=== PATIENT | female | born 1940 | race African-American/Black ===

== ENCOUNTER 2017-01-16 16:28 | Inpatient (IN) | payer MEDICARE ==
[~2017-01-16] VITALS: Ht 170.2 cm; Wt 92.1 kg
[2017-01-16] MEDS ORDERED: SODIUM CHLORIDE 0.9% 1,000 ML IV ONE (17:13)
[2017-01-16 17:48] LABS: BASOPHILS % 0.2 % (0.0-2.0); EOSINOPHILS % 0.1 % (0.0-5.0); HEMATOCRIT. 32.1 % (36.0-48.0); HEMOGLOBIN. 10.8 g/dL (12.0-16.0); INR 1.1; LYMPHOCYTES % 8.9 % (20.0-50.0); MEAN CORPUSCULAR HEMOGLOBIN 28.8 pg (28.0-32.0); MEAN CORPUSCULAR VOLUME 86.2 fL (81.0-99.0); MEAN PLATELET VOLUME 9.4 fl (7.4-10.4); MONOCYTES % 5.3 % (2.0-8.0); NEUTROPHILS % 85.5 % (40.0-76.0); PARTIAL THROMBOPLASTIN TIME 21.2 sec (23.4-31.0); PLATELET 182 x1000/uL (130-400); RED BLOOD CELL COUNT 3.73 mill/uL (4.2-5.4); RED CELL DISTRIBUTION WIDTH 18.1 % (11.6-14.6)
[2017-01-16 17:53] LABS: CARBON DIOXIDE 25 mEq/L (21-32); CHLORIDE 105 mEq/L (98-107)
[2017-01-16 17:57] LABS: TROPONIN I < 0.02 ng/mL (0.00-0.04)
[2017-01-16] MEDS ORDERED: ASPIRIN 81MG TABLET PO ONE (18:45)
[2017-01-16] MEDS ORDERED: DIVALPROEX SODIUM 250MG ER TABLET PO ONE (18:45)
[2017-01-16] MEDS ORDERED: POTASSIUM CHLORIDE 20MEQ TABLET SR PO ONE (18:45)
[2017-01-16] MEDS ORDERED: ACETAMINOPHEN 650MG/20.3ML UDC GT PRN (21:45)
[2017-01-16] MEDS ORDERED: ACETAMINOPHEN 650MG SUPP PR PRN (21:45)
[2017-01-16] MEDS ORDERED: ONDANSETRON HCL 4MG/2ML VIAL IV PRN (21:45)
[2017-01-16] MEDS ORDERED: NA PHOS,M-B/NA PHOS,DI-BA ENEMA 118ML PR PRN (21:45)
[2017-01-16] MEDS ORDERED: DOCUSATE SODIUM 100MG CAPSULE PO PRN (21:45)
[2017-01-16] MEDS ORDERED: CLONIDINE 0.1MG TABLET PO PRN (21:45)
[2017-01-16] MEDS ORDERED: ACETAMINOPHEN 325MG TABLET PO PRN (21:45)
[2017-01-16] MEDS ORDERED: MAGNESIUM/ALUMINUM HYDROXIDE/SIMETHICONE 30ML UDC PO PRN (21:45)
[2017-01-16] MEDS ORDERED: LEVETIRACETAM 500MG PREMIX 100 ML IV ONE (21:45)
[2017-01-16] MEDS ORDERED: GUAIFENESIN 200MG/10ML SUGAR FREE UDC PO PRN (21:45)
[2017-01-16] MEDS ORDERED: HYDROCODONE/ACETAMINOPHEN 5/325MG TABLET PO PRN (21:45)
[2017-01-16] MEDS ORDERED: LORAZEPAM 2MG/ML CPJ IV PRN (21:45)
[2017-01-16] MEDS ORDERED: IPRATROPIUM/ALBUTEROL 0.5-3(2.5)MG/3ML NEB INH PRN (21:45)
[2017-01-16] MEDS ORDERED: DIPHENHYDRAMINE 50MG/ML VIAL IV PRN (21:45)
[2017-01-16 22:58] VITALS: BP 146/77
[2017-01-16] MEDS ORDERED: MAGN500C4 PO (23:35)
[2017-01-16] MEDS ORDERED: THY60 PO (23:35)
[2017-01-16] MEDS ORDERED: ATOR40TA70 PO (23:35)
[2017-01-16] MEDS ORDERED: ENAL2.5T PO (23:35)
[2017-01-16] MEDS ORDERED: LOPHC2 PO (23:35)
[2017-01-16] MEDS ORDERED: DIXL10 PO (23:35)
[2017-01-16] MEDS ORDERED: TORS20TA4 PO (23:35)
[2017-01-16] MEDS ORDERED: NIFE30TA94 PO (23:35)
[2017-01-16] MEDS ORDERED: CLOP75TA16 PO (23:35)
[2017-01-16] MEDS ORDERED: CALC250T2 PO (23:35)
[2017-01-16] MEDS ORDERED: [UNRECOGNIZED DRUG - CODE] PO (23:35)
[2017-01-16] MEDS ORDERED: METF1000 PO (23:35)
[2017-01-16] MEDS ORDERED: ASCO-339 PO (23:35)
[2017-01-16] MEDS ORDERED: ASPI-1159 PO (23:35)
[2017-01-16] MEDS ORDERED: FERR325T6 PO (23:35)
[2017-01-16] MEDS ORDERED: VITA1TAB20 PO (23:35)
[2017-01-16] MEDS ORDERED: VALP250S4 PO (23:35)
[2017-01-17] VITALS: BP 135/65
[2017-01-17] MEDS: LEVETIRACETAM 500MG in SODIUM CHLORIDE 0.9% 100ML IV SCH ×3 (00:18→21:50)
[2017-01-17] MEDS: SODIUM CHLORIDE 0.9% INJ 3ML FLUSH IVF SCH ×4 (00:19→21:51)
[2017-01-17] MEDS: SODIUM CHLORIDE 0.45% 1,000 ML IV SCH ×2 (00:19→14:12)
[2017-01-17] MEDS ORDERED: DEXTROSE 50% WATER 50ML SYRINGE IV PRN (01:00)
[2017-01-17] MEDS ORDERED: METOPROL PO SCH (01:15)
[2017-01-17] MEDS ORDERED: HYDROCHLOROTHIAZIDE PO SCH (01:15)
[2017-01-17 01:41] LABS: CREATINE KINASE MB FRACTION 0.5 ng/mL (0.5-3.6); TROPONIN I 0.04 ng/mL (0.00-0.04)
[2017-01-17 04:00] VITALS: BP 125/80
[2017-01-17] MEDS: BLOOD SUGAR DIAGNOSTIC STRIP TEST SCH ×3 (06:35→21:00)
[2017-01-17] MEDS: INSULIN LISPRO 100 UNITS/ML SUBCUT SCH ×3 (07:50→21:00)
[2017-01-17 08:00] VITALS: BP 139/76
[2017-01-17] MEDS ORDERED: OXYBUTYNIN CHLORIDE 15 MG PO SCH (09:00)
[2017-01-17] MEDS ORDERED: NUT TX GLUC INTOLER LAC FR SOY PO SCH (09:00)
[2017-01-17] MEDS ORDERED: VITAMIN B COMPLEX PO SCH (09:00)
[2017-01-17] MEDS ORDERED: MAGNESIUM OXIDE 200 MG PO SCH (09:00)
[2017-01-17] MEDS ORDERED: ASCORBIC ACID 500 MG TABLET PO SCH (09:00)
[2017-01-17] MEDS ORDERED: MEDICATION NOT ON FORMULARY EA (Ascorbate Calcium (Vitamin C) 500 MG) PO SCH (09:00)
[2017-01-17] MEDS ORDERED: CALCIUM CITRATE 250 MG PO SCH (09:00)
[2017-01-17] MEDS ORDERED: MEDICATION NOT ON FORMULARY EA (Ferrous Sulfate 325 MG) PO SCH (09:00)
[2017-01-17] MEDS ORDERED: METFORMIN HCL PO SCH (09:00)
[2017-01-17] MEDS ORDERED: MEDICATION NOT ON FORMULARY EA (Nifedipine (Nifedipine Er) 1 TAB) PO SCH (09:00)
[2017-01-17] MEDS ORDERED: TORSEMIDE 10 MG PO SCH (09:00)
[2017-01-17] MEDS: METFORMIN HCL 500MG TABLET PO SCH ×2 (09:13→17:20)
[2017-01-17] MEDS: FERROUS SULFATE 325MG TABLET PO SCH (09:14)
[2017-01-17] MEDS: OXYBUTYNIN CHLORIDE 5MG TABLET PO SCH ×3 (09:14→17:19)
[2017-01-17] MEDS: METOPROLOL TARTRATE 50MG TABLET PO SCH ×2 (09:14→21:46)
[2017-01-17] MEDS: VITAMIN B / W-C 1 TAB PO SCH (09:14)
[2017-01-17] MEDS: HYDROCHLOROTHIAZIDE 25MG TABLET PO SCH ×2 (09:14→21:45)
[2017-01-17] MEDS: MAGNESIUM OXIDE 400MG TABLET PO SCH (09:15)
[2017-01-17] MEDS: ASPIRIN 81MG EC TABLET PO SCH (09:15)
[2017-01-17] MEDS: CALCIUM CARBONATE 1250MG TABLET (500MG ELEMENTAL CALCIUM) PO SCH (09:15)
[2017-01-17] MEDS: TORSEMIDE 10MG TABLET PO SCH (09:15)
[2017-01-17] MEDS: CLOPIDOGREL 75MG TABLET PO SCH (09:15)
[2017-01-17] MEDS: ENALAPRIL 2.5MG TABLET PO SCH (09:16)
[2017-01-17] MEDS: NIFEDIPINE XL 30MG TAB PO SCH (09:16)
[2017-01-17 12:00] VITALS: BP 126/76
[2017-01-17 13:26] LABS: BASOPHILS % 0.5 % (0.0-2.0); EOSINOPHILS % 1.1 % (0.0-5.0); HEMATOCRIT. 30.3 % (36.0-48.0); HEMOGLOBIN. 9.9 g/dL (12.0-16.0); LYMPHOCYTES % 30.3 % (20.0-50.0); MEAN CORPUSCULAR HEMOGLOBIN 28.5 pg (28.0-32.0); NEUTROPHILS % 61.1 % (40.0-76.0); PLATELET 182 x1000/uL (130-400); RED BLOOD CELL COUNT 3.48 mill/uL (4.2-5.4); RED CELL DISTRIBUTION WIDTH 18.7 % (11.6-14.6)
[2017-01-17 13:38] LABS: CARBON DIOXIDE 27 mEq/L (21-32); CHLORIDE 109 mEq/L (98-107)
[2017-01-17 15:23] LABS: CLARITY URINE CLEAR (CLEAR); COLOR URINE YELLOW (YELLOW); GLUCOSE URINE NEGATIVE (NEGATIVE); KETONES URINE NEGATIVE (NEGATIVE); LEUKOCYTE ESTERASE URINE NEGATIVE (NEGATIVE); NITRITE URINE NEGATIVE (NEGATIVE); OCCULT BLOOD URINE 1+ (NEGATIVE); PH URINE 6.5 (4.5-8.0); PROTEIN URINE NEGATIVE (NEGATIVE); UROBILINOGEN URINE 0.2 E.U./dL (0.2-1.0)
[2017-01-17 16:00] VITALS: BP 145/82
[2017-01-17] MEDS ORDERED: KEPP500 PO (16:59)
[2017-01-17 17:03] LABS: CREATINE KINASE MB FRACTION < 0.5 ng/mL (0.5-3.6); TROPONIN I < 0.02 ng/mL (0.00-0.04)
[2017-01-17] MEDS: ATORVASTATIN CALCIUM 40MG TABLET PO SCH (17:19)
[2017-01-17 19:39] VITALS: BP 139/82
[2017-01-18 00:39] VITALS: BP 126/75
[2017-01-18] MEDS: SODIUM CHLORIDE 0.45% 1,000 ML IV SCH ×2 (03:00→23:31)
[2017-01-18 05:19] VITALS: BP 120/64
[2017-01-18] MEDS: SODIUM CHLORIDE 0.9% INJ 3ML FLUSH IVF SCH ×3 (05:45→23:38)
[2017-01-18] MEDS: THYROID 60MG TABLET PO SCH (06:39)
[2017-01-18] MEDS: BLOOD SUGAR DIAGNOSTIC STRIP TEST SCH ×4 (06:45→21:17)
[2017-01-18] MEDS: INSULIN LISPRO 100 UNITS/ML SUBCUT SCH ×4 (07:50→21:00)
[2017-01-18 07:57] VITALS: BP 118/67
[2017-01-18] MEDS: METFORMIN HCL 500MG TABLET PO SCH ×2 (09:39→17:25)
[2017-01-18] MEDS: HYDROCHLOROTHIAZIDE 25MG TABLET PO SCH ×2 (09:39→21:00)
[2017-01-18] MEDS: VITAMIN B / W-C 1 TAB PO SCH (09:39)
[2017-01-18] MEDS: CLOPIDOGREL 75MG TABLET PO SCH (09:39)
[2017-01-18] MEDS: TORSEMIDE 10MG TABLET PO SCH (09:39)
[2017-01-18] MEDS: METOPROLOL TARTRATE 50MG TABLET PO SCH ×2 (09:40→21:00)
[2017-01-18] MEDS: ENALAPRIL 2.5MG TABLET PO SCH (09:41)
[2017-01-18] MEDS: ASPIRIN 81MG EC TABLET PO SCH (09:41)
[2017-01-18] MEDS: LEVETIRACETAM 500MG in SODIUM CHLORIDE 0.9% 100ML IV SCH ×2 (09:41→23:28)
[2017-01-18] MEDS: FERROUS SULFATE 325MG TABLET PO SCH (09:42)
[2017-01-18] MEDS: CALCIUM CARBONATE 1250MG TABLET (500MG ELEMENTAL CALCIUM) PO SCH (09:42)
[2017-01-18] MEDS: MAGNESIUM OXIDE 400MG TABLET PO SCH (09:42)
[2017-01-18] MEDS: NIFEDIPINE XL 30MG TAB PO SCH (09:42)
[2017-01-18] MEDS: OXYBUTYNIN CHLORIDE 5MG TABLET PO SCH ×3 (09:42→17:25)
[2017-01-18 12:07] VITALS: BP 118/67
[2017-01-18 16:00] VITALS: BP 121/76
[2017-01-18] MEDS: ATORVASTATIN CALCIUM 40MG TABLET PO SCH (17:25)
[2017-01-18 20:00] VITALS: BP 136/74
[2017-01-19] VITALS: BP 140/76
[2017-01-19 04:00] VITALS: BP 138/72
[2017-01-19] MEDS: INSULIN LISPRO 100 UNITS/ML SUBCUT SCH ×2 (07:04→11:57)
[2017-01-19] MEDS: BLOOD SUGAR DIAGNOSTIC STRIP TEST SCH ×2 (07:21→11:54)
[2017-01-19] MEDS: SODIUM CHLORIDE 0.9% INJ 3ML FLUSH IVF SCH ×2 (07:24→11:52)
[2017-01-19] MEDS: THYROID 60MG TABLET PO SCH (07:29)
[2017-01-19 08:00] VITALS: BP 146/74
[2017-01-19 08:30] VITALS: BP 146/74
[2017-01-19] MEDS: ASPIRIN 81MG EC TABLET PO SCH (08:54)
[2017-01-19] MEDS: CALCIUM CARBONATE 1250MG TABLET (500MG ELEMENTAL CALCIUM) PO SCH (08:55)
[2017-01-19] MEDS: VITAMIN B / W-C 1 TAB PO SCH (08:56)
[2017-01-19] MEDS: CLOPIDOGREL 75MG TABLET PO SCH (08:56)
[2017-01-19] MEDS: TORSEMIDE 10MG TABLET PO SCH (08:56)
[2017-01-19] MEDS: HYDROCHLOROTHIAZIDE 25MG TABLET PO SCH (08:57)
[2017-01-19] MEDS: MAGNESIUM OXIDE 400MG TABLET PO SCH (08:57)
[2017-01-19] MEDS: FERROUS SULFATE 325MG TABLET PO SCH (08:58)
[2017-01-19] MEDS: NIFEDIPINE XL 30MG TAB PO SCH (08:58)
[2017-01-19] MEDS: METFORMIN HCL 500MG TABLET PO SCH (08:58)
[2017-01-19] MEDS: OXYBUTYNIN CHLORIDE 5MG TABLET PO SCH ×2 (08:58→11:54)
[2017-01-19] MEDS: ENALAPRIL 2.5MG TABLET PO SCH (08:59)
[2017-01-19] MEDS ORDERED: THYROID 60MG TABLET PO SCH (09:00)
[2017-01-19] MEDS: METOPROLOL TARTRATE 50MG TABLET PO SCH (09:04)
[2017-01-19] MEDS: LEVETIRACETAM 500MG in SODIUM CHLORIDE 0.9% 100ML IV SCH (10:50)
[2017-01-19 12:00] VITALS: BP 124/70
[2017-01-19] MEDS ORDERED: METO1TAB26 PO (12:07)
[2017-01-19] MEDS ORDERED: ENAL2.5T39 PO (13:17)
[2017-01-19] MEDS ORDERED: METO50TA5 PO (13:17)
[2017-01-22] MEDS ORDERED: THYROID 60MG TABLET PO SCH (09:00)
== END 2017-01-19 13:00 | disposition home or self-care (01) | DRG 65 ==
LOC: ER 16:44 → EDBEDREQ 17:16 → 6WST 19:16 → EDBEDREQ 19:19 → ENRESERV 20:22
PROVIDERS: ADMIT Family Medicine; ATTEND Family Medicine
DX: I63.9 Cerebral infarction, unspecified (principal); I69.354 Hemiplegia and hemiparesis following cerebral infarction affecting left non-dominant side; E11.9 Type 2 diabetes mellitus without complications; D63.8 Anemia in other chronic diseases classified elsewhere; I10 Essential (primary) hypertension; E03.9 Hypothyroidism, unspecified; G40.909 Epilepsy, unspecified, not intractable, without status epilepticus; E78.5 Hyperlipidemia, unspecified; E87.6 Hypokalemia; Z79.02 Long term (current) use of antithrombotics/antiplatelets; Z79.82 Long term (current) use of aspirin; Z88.8 Allergy status to other drugs, medicaments and biological substances; Z79.899 Other long term (current) drug therapy
CPT/HCPCS: 36415; 70450; 70551; 71010; 80053; 80061; 80165; 81001; 82553; 82962; 84443; 84484; 85025; 85610; 85730; 87077; 87086; 87186; 93005; 93880; 96360; 97162; 97166; 99285; J1953; J7030; J7050